=== PATIENT | female | born 1940 | race Caucasian/White ===

== ENCOUNTER 2024-06-08 13:25 | Emergency (ER) | payer MEDICARE, OTHER ==
[~2024-06-08] VITALS: Ht 172.7 cm; Wt 80.7 kg
[2024-06-08] MEDS ORDERED: HYDROCODONE/APAP 5/325MG TABLET ONE (14:33)
[2024-06-08] MEDS: HYDROCODONE/APAP 5/325MG TABLET PO ONE (14:35)
[2024-06-08 15:32] LABS: BASOPHILS % (AUTO) 0.6 % (0.0-2.0); EOSINOPHILS # (AUTO) 0.2 K/uL (0.0-0.7); EOSINOPHILS % (AUTO) 2.9 % (0.0-6.0); HEMATOCRIT 33 % (33-45); HEMOGLOBIN 11.3 g/dL (11.5-14.8); MEAN CORPUSCULAR HEMOGLOBIN 33 PG (26.0-33.0); MEAN CORPUSCULAR HGB CONC 34 g/dl (31.0-36.0); MEAN CORPUSCULAR VOLUME 96 fL (82-100); MONOCYTES # (AUTO) 0.6 K/uL (0.1-1.30); MONOCYTES % (AUTO) 8.3 % (2.0-12.0); NEUTROPHILS # (AUTO) 4.5 K/uL (1.8-8.9); NEUTROPHILS % (AUTO) 61.2 % (43.0-81.0); PLATELET COUNT (AUTO) 220 K/uL (150-450); RED BLOOD CELL COUNT(AUTO) 3.44 MIL/uL (4.0-5.2); RED CELL DISTRIBUTION WIDTH 14.3 % (11.5-15.0); WHITE BLOOD COUNT (AUTO) 7.3 K/uL (4.3-11.0)
[2024-06-08 15:39] LABS: CALCIUM, SERUM 9.2 mg/dL (8.5-10.1); CREATININE 1.5 mg/dL (0.6-1.3); POTASSIUM 3.9 mmol/L (3.5-5.1)
[2024-06-08] MEDS: MIDAZOLAM HCL 5 MG/5ML VIAL IV ONE (15:53)
[2024-06-08 18:10] VITALS: BP 151/79; TEMP 98; O2SAT 98
== END 2024-06-08 18:11 | disposition left against medical advice (07) ==
LOC: ER 13:48
DX: S70.02XA Contusion of left hip, initial encounter (principal); Z86.73 Personal history of transient ischemic attack (TIA), and cerebral infarction without residual deficits; Z88.0 Allergy status to penicillin; M54.2 Cervicalgia; W18.39XA Other fall on same level, initial encounter; Y93.89 Activity, other specified; R51.9 Headache, unspecified; Y92.098 Other place in other non-institutional residence as the place of occurrence of the external cause; Y99.8 Other external cause status
CPT/HCPCS: 36415; 70450-TC; 71045-TC; 80048-TC; 85025-TC; 86850-TC

== ENCOUNTER 2024-09-07 11:35 | Inpatient (IN) | payer MEDICARE, OTHER ==
[~2024-09-07] VITALS: Ht 172.7 cm; Wt 109.8 kg
[~2024-09-07 11:35] MED LIST: DESO15CR8 TP; KETO15CR2 TP
[2024-09-07] MEDS ORDERED: ONDANSETRON HCL/PF 4 MG/2 ML VIAL IVP PRN (12:30)
[2024-09-07] MEDS ORDERED: ACETAMINOPHEN 325 MG TABLET PO PRN (12:30)
[2024-09-07] MEDS ORDERED: QUET25TA PO (13:12)
[2024-09-07] MEDS ORDERED: HYDR-3973 PO (13:12)
[2024-09-07] MEDS ORDERED: SENN-261 PO (13:12)
[2024-09-07] MEDS ORDERED: MAGN400O6 PO (13:12)
[2024-09-07] MEDS ORDERED: DOCU100C36 PO (13:12)
[2024-09-07] MEDS ORDERED: BUME1TAB8 PO (13:12)
[2024-09-07] MEDS ORDERED: VALS160T29 PO (13:12)
[2024-09-07] MEDS ORDERED: POTA10TA17 PO (13:12)
[2024-09-07] MEDS ORDERED: HYDR59LO7 TP (13:12)
[2024-09-07] MEDS ORDERED: AMLO-212 PO (13:12)
[2024-09-07] MEDS ORDERED: ACET325T53 PO (13:12)
[2024-09-07] MEDS ORDERED: LEVO50TA8 PO (13:12)
[2024-09-07] MEDS ORDERED: MEMA5TAB42 PO (13:12)
[2024-09-07] MEDS ORDERED: LIDO1ADH90 TP (13:12)
[2024-09-07] MEDS ORDERED: FUROSEMIDE 40 MG/4 ML VIAL ONE (13:51)
[2024-09-07] MEDS: FUROSEMIDE 40 MG/4 ML VIAL IV ONE (13:55)
[2024-09-07 16:00] LABS: BASOPHILS # (AUTO) 0.1 K/uL (0.0-0.2); BASOPHILS % (AUTO) 0.7 % (0.0-2.0); EOSINOPHILS # (AUTO) 0.5 K/uL (0.0-0.7); EOSINOPHILS % (AUTO) 6.4 % (0.0-6.0); HEMATOCRIT 35 % (33-45); HEMOGLOBIN 11.5 g/dL (11.5-14.8); LYMPHOCYTES # (AUTO) 1.4 K/uL (0.8-4.8); LYMPHOCYTES % (AUTO) 17.9 % (20.0-44.0); MEAN CORPUSCULAR HEMOGLOBIN 32 PG (26.0-33.0); MEAN CORPUSCULAR HGB CONC 33 g/dl (31.0-36.0); MEAN CORPUSCULAR VOLUME 98 fL (82-100); MONOCYTES # (AUTO) 0.6 K/uL (0.1-1.30); MONOCYTES % (AUTO) 8.2 % (2.0-12.0); NEUTROPHILS # (AUTO) 5.1 K/uL (1.8-8.9); NEUTROPHILS % (AUTO) 66.8 % (43.0-81.0); PLATELET COUNT (AUTO) 226 K/uL (150-450); RED BLOOD CELL COUNT(AUTO) 3.56 MIL/uL (4.0-5.2); RED CELL DISTRIBUTION WIDTH 13.8 % (11.5-15.0); WHITE BLOOD COUNT (AUTO) 7.6 K/uL (4.3-11.0)
[2024-09-07 16:06] LABS: CALCIUM, SERUM 9.5 mg/dL (8.5-10.1); CREATININE 1.4 mg/dL (0.6-1.3); POTASSIUM 4.2 mmol/L (3.5-5.1)
[2024-09-07] MEDS: VANCOMYCIN 750 MG in IV D5W 250 ML IV SCH (18:29)
[2024-09-07] MEDS: ENOXAPARIN SODIUM 30 MG/0.3 ML DISP.SYRIN SQ SCH (18:30)
[2024-09-07 19:10] VITALS: BP 154/90; TEMP 97.9; O2SAT 99
[2024-09-07 20:00] VITALS: BP 127/59; TEMP 98.1; O2SAT 98
[2024-09-07] MEDS: HYDROCODONE/APAP 5/325MG TABLET PO PRN (21:23)
[2024-09-07 22:24] VITALS: BP 127/59; TEMP 98.1; O2SAT 98
[2024-09-07 22:29] VITALS: BP 127/59; TEMP 98.1; O2SAT 98
[2024-09-08 08:00] VITALS: BP 134/52; TEMP 98; O2SAT 95
[2024-09-08 11:06] LABS: BASOPHILS % (AUTO) 0.6 % (0.0-2.0); EOSINOPHILS # (AUTO) 0.5 K/uL (0.0-0.7); EOSINOPHILS % (AUTO) 7.7 % (0.0-6.0); HEMATOCRIT 35 % (33-45); HEMOGLOBIN 11.8 g/dL (11.5-14.8); LYMPHOCYTES % (AUTO) 15.6 % (20.0-44.0); MEAN CORPUSCULAR HEMOGLOBIN 33 PG (26.0-33.0); MEAN CORPUSCULAR HGB CONC 34 g/dl (31.0-36.0); MEAN CORPUSCULAR VOLUME 97 fL (82-100); MONOCYTES # (AUTO) 0.6 K/uL (0.1-1.30); NEUTROPHILS # (AUTO) 4.4 K/uL (1.8-8.9); NEUTROPHILS % (AUTO) 67.1 % (43.0-81.0); PLATELET COUNT (AUTO) 227 K/uL (150-450); RED BLOOD CELL COUNT(AUTO) 3.62 MIL/uL (4.0-5.2); RED CELL DISTRIBUTION WIDTH 13.4 % (11.5-15.0); WHITE BLOOD COUNT (AUTO) 6.6 K/uL (4.3-11.0)
[2024-09-08 11:33] LABS: CALCIUM, SERUM 9.6 mg/dL (8.5-10.1); CREATININE 1.4 mg/dL (0.6-1.3); PHOSPHORUS 3.6 mg/dL (2.5-4.9); POTASSIUM 3.8 mmol/L (3.5-5.1)
[2024-09-08 16:00] VITALS: BP 126/55; TEMP 98.8; O2SAT 97
[2024-09-08] MEDS: VANCOMYCIN 1 GM in IV D5W 250 ML IV SCH (16:16)
[2024-09-08 19:15] LABS: APPEARANCE,URINE CLEAR (CLEAR); BILIRUBIN,URINE NEGATIVE (NEGATIVE); BLOOD, URINE 1+ Ery/uL (NEGATIVE); COLOR,URINE YELLOW (YELLOW); KETONES,URINE NEGATIVE (NEGATIVE); LEUKOCYTE ESTERASE ,URINE 1+ (NEGATIVE); NITRITE, URINE POSITIVE (NEGATIVE); PH,URINE 6.5 (5.0-8.0); PROTEIN,URINE NEGATIVE (NEGATIVE); UGLUCOSE NEGATIVE (NEGATIVE)
[2024-09-08 19:22] LABS: CREATININE, URINE 102.6 MG/DL (30.0-125.0); URINE TOTAL PROTEIN 23.4 mg/dL (0-11.9)
[2024-09-08 19:28] LABS: ADD URINE CULTURE YES; BACTERIA,URINE Many /HPF (None Seen); SQUAMOUS EPITHELIAL CELL,UR 0-2 /HPF (None Seen)
[2024-09-08 20:00] VITALS: BP 140/60; TEMP 99.1; O2SAT 98
[2024-09-08 21:02] LABS: EOSINOPHIL,URINE None Seen
[2024-09-08 21:36] VITALS: BP 144/60; TEMP 99.1; O2SAT 98
[2024-09-09 07:30] VITALS: BP 128/104; TEMP 98.8; O2SAT 98
[2024-09-09 07:30] LABS: BASOPHILS % (AUTO) 0.3 % (0.0-2.0); EOSINOPHILS # (AUTO) 0.6 K/uL (0.0-0.7); EOSINOPHILS % (AUTO) 8.6 % (0.0-6.0); HEMATOCRIT 32 % (33-45); HEMOGLOBIN 10.9 g/dL (11.5-14.8); LYMPHOCYTES # (AUTO) 1.6 K/uL (0.8-4.8); LYMPHOCYTES % (AUTO) 23.8 % (20.0-44.0); MEAN CORPUSCULAR HEMOGLOBIN 33 PG (26.0-33.0); MEAN CORPUSCULAR HGB CONC 34 g/dl (31.0-36.0); MEAN CORPUSCULAR VOLUME 96 fL (82-100); MONOCYTES # (AUTO) 0.7 K/uL (0.1-1.30); MONOCYTES % (AUTO) 10.2 % (2.0-12.0); NEUTROPHILS # (AUTO) 3.7 K/uL (1.8-8.9); NEUTROPHILS % (AUTO) 57.1 % (43.0-81.0); PLATELET COUNT (AUTO) 239 K/uL (150-450); RED BLOOD CELL COUNT(AUTO) 3.33 MIL/uL (4.0-5.2); RED CELL DISTRIBUTION WIDTH 13.5 % (11.5-15.0); WHITE BLOOD COUNT (AUTO) 6.5 K/uL (4.3-11.0)
[2024-09-09 07:56] LABS: ALBUMIN 2.9 g/dL (3.4-5.0); BILIRUBIN,TOTAL 0.5 mg/dL (0.2-1.0); CALCIUM, SERUM 9.2 mg/dL (8.5-10.1); CREATININE 1.3 mg/dL (0.6-1.3); PHOSPHORUS 3.2 mg/dL (2.5-4.9); POTASSIUM 3.4 mmol/L (3.5-5.1); TOTAL PROTEIN, SERUM 6.7 g/dL (6.4-8.2)
[2024-09-09] MEDS: POTASSIUM CHLORIDE 20 MEQ POWDER PACKET PO SCH (09:44)
[2024-09-09] MEDS ORDERED: POTASSIUM CHLORIDE 20 MEQ TAB.PRT.SR PO SCH (10:00)
[2024-09-09 16:35] VITALS: BP 150/62; TEMP 98.1; O2SAT 97
[2024-09-09 20:00] VITALS: BP 138/63; TEMP 97.3; TEMP 97.7; O2SAT 99
[2024-09-10 06:07] LABS: PTH, INTACT 51 pg/mL (15-65)
[2024-09-10] MEDS ORDERED: CLIN150C16 PO (07:04)
[2024-09-10 07:30] VITALS: BP 137/56; TEMP 98.2; O2SAT 99
[2024-09-10 08:15] LABS: CALCIUM, SERUM 9.4 mg/dL (8.5-10.1); CREATININE 1.3 mg/dL (0.6-1.3); POTASSIUM 3.6 mmol/L (3.5-5.1)
[2024-09-13 08:07] LABS: *SPE A/G RATIO 0.8 (0.7-1.7); *SPE ALBUMIN 2.7 g/dL (2.9-4.4); *SPE ALPHA-1-GLOBULIN 0.2 g/dL (0.0-0.4); *SPE ALPHA-2-GLOBULIN 0.6 g/dL (0.4-1.0); *SPE BETA GLOBULIN 0.9 g/dL (0.7-1.3); *SPE GLOBULIN, TOTAL 3.3 g/dL (2.2-3.9); *SPE M-SPIKE Not Observed g/dL (Not Observed); *SPEGAMMA GLOBULIN 1.6 g/dL (0.4-1.8)
== END 2024-09-10 14:00 | DRG 603 ==
LOC: ER 11:40 → MED 14:57
PROVIDERS: ADMIT Nurse Practitioner Acute Care; ATTEND Internal Medicine
DX: L03.116 Cellulitis of left lower limb (principal); N17.9 Acute kidney failure, unspecified; D68.69 Other thrombophilia; L03.115 Cellulitis of right lower limb; J45.909 Unspecified asthma, uncomplicated; D64.9 Anemia, unspecified; E66.01 Morbid (severe) obesity due to excess calories; M19.90 Unspecified osteoarthritis, unspecified site; M79.3 Panniculitis, unspecified; M89.8X9 Other specified disorders of bone, unspecified site; E83.9 Disorder of mineral metabolism, unspecified; Z88.0 Allergy status to penicillin; Z68.36 Body mass index [BMI] 36.0-36.9, adult; I12.9 Hypertensive chronic kidney disease with stage 1 through stage 4 chronic kidney disease, or unspecified chronic kidney disease; N18.9 Chronic kidney disease, unspecified; I89.0 Lymphedema, not elsewhere classified; S81.802A Unspecified open wound, left lower leg, initial encounter; S81.801A Unspecified open wound, right lower leg, initial encounter; X58.XXXA Exposure to other specified factors, initial encounter; Y93.9 Activity, unspecified; Y92.129 Unspecified place in nursing home as the place of occurrence of the external cause
CPT/HCPCS: 36415; 76770-TC; 80048-TC; 80053-TC; 81001; 82550-TC; 82570-TC; 83735-TC; 83880; 83970; 84100-TC; 84155; 84165; 84300-TC; 85025-TC; 87081-TC; 87086-TC; 87186-TC; 93970-TC; 97110-TC; 97112-TC; 97530-TC; A4223; A6253; G0378; J1650; J1938; J3370; J3371; J7050; J7060